=== PATIENT | female | born 1970 | race Caucasian/White ===

== ENCOUNTER 2017-02-22 10:13 | Outpatient (CLI) | payer SELFPAY ==
[2016-07-01 14:42] VITALS: BP 103/56
== END 2017-02-22 10:30 ==
LOC: RAD 10:13
PROVIDERS: ATTEND Physician Assistant
DX: M54.16 Radiculopathy, lumbar region (principal)
CPT/HCPCS: 72148

== ENCOUNTER 2017-09-30 13:56 | Emergency (ER) | payer SELFPAY ==
[2017-09-30 15:48] VITALS: BP 114/75
== END 2017-09-30 16:03 | disposition left against medical advice (07) ==
LOC: ED 13:56
DX: Z53.9 Procedure and treatment not carried out, unspecified reason (principal)

== ENCOUNTER 2018-02-03 08:20 | Emergency (ER) | payer SELFPAY ==
[2018-02-03 08:41] VITALS: BP 120/71
[2018-02-03 08:47] LABS: BASOPHILS % 0.6 (0.0-1.5); EOSINOPHILS % 2.7 % (0.0-6.8); MEAN CORPUSCULAR HEMOGLOBIN 31.7 pg (28.0-34.0); MEAN CORPUSCULAR VOLUME 96.5 fl (80.0-100.0); MONOCYTES % 4.6 % (0.0-11.0); NEUTROPHILS # 3.7 # k/uL (1.4-7.7)
[2018-02-03] MEDS: ORPHENADRINE CITRATE 60 MG/2ML IM ONE (08:55)
[2018-02-03] MEDS: KETOROLAC TROMETHAMINE 60 MG/2 ML VIAL IM ONE (08:55)
[2018-02-03 09:00] LABS: eGFR (African) > 60; eGFR (Non-African) > 60
--- NOTE | 2018-02-03 09:48 | ED Physician Documentation ---
General Adult - HISTORIAN Historian: patient - HPI Stated Complaint: Throat tightness Chief Complaint: General Adult Additional Information: Lump right neck for months. Has feeling of tightness throughout upper back, neck. Feels increasingly hard to eat or swallow the last two days. No treatment and has not seen anyone for these complaints. Has had the tightness in upper back for years and blames this on stress. No treatment attempted except heat. History of anxiety. - ROS CONST: no problems - PAST HX Past History: other (above) Allergies/Adverse Reactions: Allergies Allergy/AdvReac Type Severity Reaction Status Date / Time No Known Drug Allergies Allergy Verified 02/03/18 08:41 Home Medications: Ambulatory Orders Medication Instructions Recorded Phenytoin Sodium Extended 4 cap PO DAILY 02/03/18 [Dilantin] - SOCIAL HX Smoking History: non-smoker - FAMILY HX Family History: No - VITAL SIGNS Vital Signs: Vital Signs Temp Pulse Resp BP Pulse Ox 97.9 F 119 H 18 120/71 99 02/03/18 08:23 02/03/18 08:23 02/03/18 08:23 02/03/18 08:23 02/03/18 08:23 - REVIEWED ASSESSMENTS Nursing Assessment Reviewed: Yes Vitals Reviewed: Yes ED Results Lab/Radiology - Lab Results Lab Results: Lab Results 02/03/18 02/03/18 08:35 08:35 WBC 6.90 K/ul K/ul (4.00-12.00) RBC 4.48 M/ul M/ul (3.90-5.20) Hgb 14.2 g/dL g/dL (12.0-16.0) Hct 43.3 % % (34.5-46.5) MCV 96.5 fl fl (80.0-100.0) MCH 31.7 pg pg (28.0-34.0) MCHC 32.9 g/dL g/dL (30.0-36.0) RDW 11.9 % % (11.3-14.3) Plt Count 314 K/mm3 K/mm3 (130-400) Neut % (Auto) 54.3 % % (39.0-79.0) Lymph % (Auto) 36.4 % % (16.0-50.0) [place] % (Auto) 4.6 % % (0.0-11.0) Eos % (Auto) 2.7 % % (0.0-6.8) Baso % (Auto) 0.6 (0.0-1.5) Neut # (Auto) 3.7 # k/uL # k/uL (1.4-7.7) Lymph # (Auto) 2.5 # k/uL # k/uL (0.6-4.0) [place] # (Auto) 0.3 # k/uL # k/uL (0.0-0.9) Eos # (Auto) 0.2 # k/uL # k/uL (0.0-0.6) Baso # (Auto) 0.0 # k/uL # k/uL (0.0-0.5) Reactive Lymphs % 1.4 % % (0.0-5.0) Reactive Lymphs # 0.1 # k/uL # k/uL (0.0-0.8) Sodium 143 mmol/L mmol/L (136-145) Potassium 3.8 mmol/L mmol/L (3.5-5.1) Chloride 105 mmol/L mmol/L (98-107) Carbon Dioxide 25 mmol/L mmol/L (22-30) BUN 11 mg/dL mg/dL (7-17) Creatinine 0.70 mg/dL mg/dL (0.52-1.04) Estimated Creat Clear 142 Est GFR ( Amer) > 60 (60 - ) Est GFR (Non-Af Amer) > 60 (60 - ) Glucose 134 mg/dL H mg/dL (74-106) Calcium 10.0 mg/dL mg/dL (8.4-10.2) Total Bilirubin 0.2 mg/dL mg/dL (0.2-1.3) AST 14 U/L L U/L (15-46) ALT 18 U/L U/L (13-69) Alkaline Phosphatase 98 U/L U/L (38-126) Total Protein 8.1 g/dL g/dL (6.3-8.2) Albumin 5.0 g/dL g/dL (3.5-5.0) - Orders Orders: ED Orders Category Date Time Status CBC/PLATELET/DIFF Routine Lab 02/03/18 08:35 Completed CMP Routine Lab 02/03/18 08:35 Completed Rapid Strep [GRP A STREP SCREEN] Stat Lab 02/03/18 Ordered Ketorolac Tromethamine [Toradol] Med 02/03/18 08:49 Discontinued 60 mg IM NOW ONE Orphenadrine Citrate [Norflex] Med 02/03/18 08:49 Discontinued 60 mg IM NOW ONE General Adult Physical Exam - PHYSICAL EXAM GENERAL APPEARANCE: moderate distress (anxious) EENT: eye inspection normal, ENT inspection normal NECK: normal inspection, other (tender muscle spasm R >>L traps and below right mastoid ) RESPIRATORY: no resp distress, breath sounds normal CVS: reg rate & rhythm, heart sounds normal BACK: normal inspection, other (muscle spasm as above) SKIN: warm/dry, normal color EXTREMITIES: normal range of motion (gait and stance), no evidence of injury NEURO: CN's nml as tested, motor nml, sensation nml Discharge Clincal Impression: Trapezius muscle strain Qualifiers: Encounter type: initial encounter Laterality: unspecified laterality Qualified Code(s): S46.819A - Strain of other muscles, fascia and tendons at shoulder and upper arm level, unspecified arm, initial encounter Referrals: Barak Ruffin MD [Primary Care Provider] - 2 Days Additional Instructions: Ice or gentle heat to the sore area for 30 minutes of each hour you are awake. Keep the shoulders loose and move them every 15 minutes . Gentle massage to the sore muscles. You can take 1000 mg of tylenol every 8 hours if needed for discomfort. You can also take 600 mg of ibuprofen with food every 8 hours. Condition: Good Disposition: 01 HOME, SELF-CARE Decision to Admit: NO Decision Time: 10:45
== END 2018-02-03 10:50 | disposition home or self-care (01) ==
LOC: ED 08:20
DX: S46.819A Strain of other muscles, fascia and tendons at shoulder and upper arm level, unspecified arm, initial encounter (principal); X58.XXXA Exposure to other specified factors, initial encounter; Y92.9 Unspecified place or not applicable; Y93.9 Activity, unspecified; Y99.9 Unspecified external cause status; R07.0 Pain in throat
CPT/HCPCS: 80053; 85025; 86308; 87070; 87880; J1885; J2360; 96372; 99284

== ENCOUNTER 2019-04-05 10:00 | Emergency (ER) | payer SELFPAY ==
[2019-04-05 10:41] VITALS: BP 139/75
[2019-04-05] MEDS: 0.9 % SODIUM CHLORIDE 1,000 ML IV ONE (10:56)
[2019-04-05] MEDS: ONDANSETRON HCL/PF 4 MG/ 2ML VIAL IVP ONE (10:56)
--- NOTE | 2019-04-05 10:56 | ED Physician Documentation ---
General Adult - HISTORIAN Historian: patient - HPI Stated Complaint: neck, bilateral shoulder, and mid back pain Chief Complaint: General Adult Additional Information: Patient is a 49-year-old female who presents to the ER with multiple complaints. For the last month she has been having soreness to the anterior neck that is now lateral on both sides and posterior- she states that it is difficult to swallow, she also c/o thoracic back pain that started 2 weeks ago after a fall- she c/o muscle spasms, she also c/o cough and difficulty taking a deep breath. She states that she has been taking a lot of aleve for the neck and back pain and feels like it has upset her stomach now. She c/o dizziness and feeling light headed. She states that position changes sometimes make her nauseated. Onset: other (Symptoms started one month ago) Timing: still present Severity: mild Modifying Factors: fall - ROS CONST: denies: recent illness EYES/ENT: sore throat (patient states the outside of her neck and throat) CVS/RESP: cough, other (feels like she cant take a deep breath) GI/: abdominal pain (from taking Aleve), nausea MS/SKIN/LYMPH: back pain NEURO/PSYCH: dizziness - PAST HX Past History: none Other History: none Surgeries/Procedures: hysterectomy Immunizations: UTD Allergies/Adverse Reactions: Allergies Allergy/AdvReac Type Severity Reaction Status Date / Time No Known Drug Allergies Allergy Verified 02/03/18 08:41 Home Medications: Ambulatory Orders Medication Instructions Recorded Cyclobenzaprine HCl [Flexeril] 10 mg PO HS #15 tablet 02/03/18 Phenytoin Sodium Extended 4 cap PO DAILY 02/03/18 [Dilantin] Cyclobenzaprine HCl [Flexeril] 5 mg PO TID PRN #30 tablet 04/05/19 Methylprednisolone [Medrol] 4 mg PO DAILY #21 tab.ds.pk 04/05/19 - SOCIAL HX Smoking History: other (quit 1 mth ago) Alcohol Use: none Drug Use: none - FAMILY HX Family History: No - VITAL SIGNS Vital Signs: Vital Signs Temp Pulse Resp BP Pulse Ox 97.8 F 77 18 139/75 98 04/05/19 10:36 04/05/19 10:36 04/05/19 10:36 04/05/19 10:36 04/05/19 10:36 - REVIEWED ASSESSMENTS Nursing Assessment Reviewed: Yes Vitals Reviewed: Yes ED Results Lab/Radiology - Radiology Radiology Impressions: Examination: PA and lateral chest. History: Evaluate lung messina. Comparison exam: None provided. Findings: PA and lateral views of the chest demonstrates a normal cardiac and mediastinal silhouette. No focal infiltrate. No blunting of the costophrenic margins. Osseous structures are appropriate for age. Impression: No acute pulmonary process. Examination: Plain film thoracic spine History: BACK PAIN - FALL x1 WEEK AGO Findings: 3 views of the thoracic spine demonstrate normal height. No anterior compression. Scattered osteophytes. Slight curvature to the right at the thoracolumbar region. No soft tissue abnormalities. Impression: Generous spurring and curvature. No compression deformity. Examination: CT neck History: DIFFICULTY SWALLOWING, PAIN IN NECK Comparison exams: None provided Technique: CT neck with contrast Findings: Streak artifact from dental hardware obscures the oropharynx region. Parotid and submandibular glands are without abnormality. No abnormal enhancement. No pathologic adenopathy involving the carotid, jugular and posterior cervical chain regions. Base of the tongue, william pharynx and prevertebral spaces are without abnormality. Trachea and esophagus are midline. No lower cervical chain irregularities. Lower neck structures including thyroid gland are without abnormality. Apical lung messina demonstrates apical scarring. Cervical vertebral bodies demonstrate ossific spurring. Skull base structures including brain parenchyma are without abnormality. Impression: No evidence for neck mass or inflammatory process. - Orders Orders: ED Orders Category Date Time Status Place IV Lock 1T Care 04/05/19 10:32 Active CHEST 2VIEW [RAD] Stat Exams 04/05/[address] NECK SOFT TISSUE W/ CON Stat Exams 04/05/19 Ordered T SPINE 3 VIEWS [RAD] Stat Exams 04/05/19 Ordered CBC/PLATELET/DIFF Routine Lab 04/05/19 10:31 Ordered CMP Routine Lab 04/05/19 Ordered LIPASE Stat Lab 04/05/19 Ordered 0.9 % Sodium Chloride [Normal Saline] 1,000 ml Med 04/05/19 10:32 Active IV Q1H Ondansetron HCl/Pf [Zofran] Med 04/05/19 10:32 Discontinued 4 mg IVP NOW ONE General Adult Physical Exam - PHYSICAL EXAM GENERAL APPEARANCE: mild distress EENT: eye inspection normal, ENT inspection normal, pharynx normal, RUDY NECK: normal inspection, supple RESPIRATORY: no resp distress, chest non-tender, breath sounds normal CVS: heart sounds normal, equal pulses ABDOMEN: soft, normal bowel sounds, non-tender BACK: other (muscle spasms on the left thoracic spine) SKIN: warm/dry, normal color EXTREMITIES: non-tender, normal range of motion NEURO: oriented X3, CN's nml as tested, motor nml, sensation nml, mood/affect nml Discharge Clincal Impression: Muscle spasm of back, Muscle spasms of neck Prescriptions: Cyclobenzaprine HCl [Flexeril] 5 mg PO TID PRN #30 tablet PRN Reason: Muscle Spasms Methylprednisolone [Medrol] 4 mg PO DAILY #21 tab.ds.pk Referrals: Primary Doctor,No [Primary Care Provider] - 2 Days Additional Instructions: Take Medrol dose pack as directed or inflammation Take Cyclobenzaprine 5mg three times a day as needed for muscle spasms May use heating pad to the affected areas Use IcyHot, Aspercreme, BenGay, or Salonpas to affected areas Will refer to pain specialist here at the hospital- they will call you to schedule appointment Condition: Good Disposition: 01 HOME, SELF-CARE Decision to Admit: NO Decision Time: 12:25
[2019-04-05 11:10] LABS: eGFR (Non-African) > 60
[2019-04-05 11:22] LABS: BASOPHILS % 0.5 % (0.0-1.5); NEUTROPHILS # 3.8 # k/uL (1.4-7.7)
--- NOTE | 2019-04-05 11:39 | Diagnostic Imaging Report ---
POOJA FAJARDO ED [facility] [address] [facility] [address] Report Submission Date: Apr 05, 2019 11:35:10 AM CDT Patient Study Name: MITALI AMAYA Date: Apr 05, 2019 10:36:46 AM CDT Modality Type: DX Gender: F Description: T SPINE 3 VIEWS : 72 Institution: [facility] Physician: POOJA FAJARDO ED Examination: Plain film thoracic spine History: BACK PAIN - FALL x1 WEEK AGO Findings: 3 views of the thoracic spine demonstrate normal height. No anterior compression. Scattered osteophytes. Slight curvature to the right at the thoracolumbar region. No soft tissue abnormalities. Impression: Generous spurring and curvature. No compression deformity. Electronically signed on Apr 05, 2019 11:35:10 AM CDT by: Lauri DOMINGUEZ
--- NOTE | 2019-04-05 11:39 | Diagnostic Imaging Report ---
POOJA FAJARDO ED [facility] [address] [facility] [address] [place], [place]. [address] Report Submission Date: Apr 05, 2019 11:35:17 AM CDT Patient Study Name: MITALI AMAYA Date: Apr 05, 2019 10:36:46 AM CDT Modality Type: DX Gender: F Description: CHEST 2VIEW : 72 Institution: [facility] Physician: POOJA FAJARDO ED Examination: PA and lateral chest. History: Evaluate lung messina. Comparison exam: None provided. Findings: PA and lateral views of the chest demonstrates a normal cardiac and mediastinal silhouette. No focal infiltrate. No blunting of the costophrenic margins. Osseous structures are appropriate for age. Impression: No acute pulmonary process. Electronically signed on Apr 05, 2019 11:35:17 AM CDT by: Lauri DOMINGUEZ
[2019-04-05] MEDS: KETOROLAC TROMETHAMINE 30 MG/1ML VIAL IV ONE (11:44)
--- NOTE | 2019-04-05 11:50 | Diagnostic Imaging Report ---
POOJA FAJARDO ED [facility] [address] [facility] [address] [address] Report Submission Date: Apr 05, 2019 11:46:53 AM CDT Patient Study Name: MITALI AMAYA Date: Apr 05, 2019 10:58:33 AM CDT Modality Type: CT\SR Gender: F Description: CT NECK SOFT TISSUE W/ : 72 Institution: [facility] Physician: POOJA FAJARDO ED Examination: CT neck History: DIFFICULTY SWALLOWING, PAIN IN NECK Comparison exams: None provided Technique: CT neck with contrast Findings: Streak artifact from dental hardware obscures the oropharynx region. Parotid and submandibular glands are without abnormality. No abnormal enhancement. No pathologic adenopathy involving the carotid, jugular and posterior cervical chain regions. Base of the tongue, william pharynx and prevertebral spaces are without abnormality. Trachea and esophagus are midline. No lower cervical chain irregularities. Lower neck structures including thyroid gland are without abnormality. Apical lung messina demonstrates apical scarring. Cervical vertebral bodies demonstrate ossific spurring. Skull base structures including brain parenchyma are without abnormality. Impression: No evidence for neck mass or inflammatory process. Electronically signed on Apr 05, 2019 11:46:53 AM CDT by: Lauri DOMINGUEZ
[2019-04-05 16:37] LABS: APPEARANCE,URINE CLEAR (CLEAR); COLOR,URINE YELLOW (YELLOW); OCCULT BLOOD,URINE NEGATIVE (NEGATIVE); PH URINE 6.5 (5.0 - 8.0); UROBILINOGEN URINE 0.2 Eu (0.2-1.0)
== END 2019-04-05 12:05 | disposition home or self-care (01) ==
LOC: ED 10:00
DX: M62.830 Muscle spasm of back (principal)
CPT/HCPCS: 70491; 71046; 72072; 80053; 81002; 83690; 85025; 96361; 96374; 96375; 99283; 99284; J1885; J2405; J7030; Q9967; S1016